=== PATIENT | female | born 1985 | race Caucasian/White ===

== ENCOUNTER 2017-07-12 11:00 | Inpatient (IN) | payer OTHER ==
[~2017-07-12] VITALS: Ht 165.1 cm; Wt 101.6 kg
[2017-07-13] MEDS ORDERED: DEXAMETHASONE0.5 MG (10:25)
[2017-07-13] MEDS ORDERED: DEXAMETHASONE0.5 MG PO (10:26)
[2017-07-17] MEDS ORDERED: RECTICARE30 GM TOP (15:06)
[2017-07-17] MEDS ORDERED: OXYC1TAB9 PO (15:07)
== END 2017-07-18 11:00 | disposition home or self-care (01) | DRG 348 ==
LOC: ER 11:00 → MEDJ 21:07 → SEC-K 21:07 → MEDI 07-13 16:43 → MEDJ 07-13 18:14
PROVIDERS: Surgery
PROC: 30233N1 Transfusion of Nonautologous Red Blood Cells into Peripheral Vein, Percutaneous Approach (ICD-10-PCS; 2017-07-13)
PROC: 3E0T3BZ Introduction of Anesthetic Agent into Peripheral Nerves and Plexi, Percutaneous Approach (ICD-10-PCS; 2017-07-15)
PROC: 0UJH7ZZ Inspection of Vagina and Cul-de-sac, Via Natural or Artificial Opening (ICD-10-PCS; 2017-07-15)
PROC: 06BY0ZC Excision of Hemorrhoidal Plexus, Open Approach (ICD-10-PCS; principal; 2017-07-15 07:00)
DX: K64.3 Fourth degree hemorrhoids (principal); D62 Acute posthemorrhagic anemia; E27.49 Other adrenocortical insufficiency; K92.1 Melena

== ENCOUNTER 2020-06-10 09:47 | Day surgery (SDC) | payer OTHER ==
[~2020-06-10 09:47] MED LIST: DEXAMETHASONE0.5 MG; DEXAMETHASONE0.5 MG PO; OXYC1TAB9 PO; RECTICARE30 GM TOP
== END 2020-06-10 19:15 | disposition home or self-care (01) ==
LOC: CIR.AMB 09:47
PROVIDERS: ATTEND Obstetrics & Gynecology
DX: O02.1 Missed abortion (principal); Z20.828 Contact with and (suspected) exposure to other viral communicable diseases

== ENCOUNTER 2021-11-17 07:17 | Inpatient (IN) | payer OTHER ==
[~2021-11-17] VITALS: Ht 165.1 cm; Wt 103.4 kg
[2021-11-17] MEDS ORDERED: PRENATABS RX T1 EACH PO (09:01)
[2021-11-17] MEDS ORDERED: CALCIUM500 M1 PO (09:01)
== END 2021-11-19 10:52 | disposition home or self-care (01) | DRG 807 ==
LOC: LDR 07:17 → SURG-SUITE 22:51
PROVIDERS: ADMIT Obstetrics & Gynecology; ATTEND Obstetrics & Gynecology
PROC: 10E0XZZ Delivery of Products of Conception, External Approach (ICD-10-PCS; principal; 2021-11-17)
PROC: 0W8NXZZ Division of Female Perineum, External Approach (ICD-10-PCS; 2021-11-17)
PROC: 4A1HXCZ Monitoring of Products of Conception, Cardiac Rate, External Approach (ICD-10-PCS; 2021-11-17)
DX: O80 Encounter for full-term uncomplicated delivery (principal); Z37.0 Single live birth; Z3A.39 39 weeks gestation of pregnancy; Z20.822 Contact with and (suspected) exposure to COVID-19